=== PATIENT | male | born 1935 | race Caucasian/White ===

== ENCOUNTER → 2020-08-22 | Outpatient (CLI) | payer MEDICARE ==
[~2020-08-22] VITALS: Ht 170.2 cm; Wt 70.0 kg
[~2020-08-22] MED LIST: LIPITOR20 M2 PO; NORCO 325 MG-51 TA1 PO; PERCOCET 325 MG1 TA2 PO
[2020-08-22 15:00] VITALS: BP 139/71
== END ==
LOC: AMSURD 13:35
DX: K59.00 Constipation, unspecified (principal)

== ENCOUNTER → 2020-10-18 | Outpatient (CLI) | payer MEDICARE ==
[2020-08-22 15:00] VITALS: BP 139/71
[2020-10-18 15:00] LABS: ALBUMIN 3.7 g/dL (3.4-4.8); POTASSIUM 4.2 mmol/L (3.5-5.1)
[2020-10-18 15:01] LABS: CALCIUM 9.2 mg/dL (8.3-10.5)
[2020-10-18 15:03] LABS: TOTAL PROTEIN 6.4 g/dL (6.2-8.1)
[2020-10-18 15:05] LABS: TOTAL BILIRUBIN 0.4 mg/dL (0.2-1.2)
[2020-10-19 11:00] LABS: T3 TOTAL 48 ng/dL (58-159); TESTOSTERONE 891 ng/dL (221-716)
== END ==
LOC: LAB 14:29
PROVIDERS: Internal Medicine
DX: Z12.5 Encounter for screening for malignant neoplasm of prostate (principal); E78.2 Mixed hyperlipidemia; I10 Essential (primary) hypertension; K90.9 Intestinal malabsorption, unspecified; N52.9 Male erectile dysfunction, unspecified

== ENCOUNTER → 2021-04-27 | Outpatient (CLI) | payer MEDICARE ==
[2021-04-27 16:29] LABS: BASO # 0.07 (0.02-0.10); EOS # 0.51 (0.04-0.40); HEMATOCRIT 39.4 % (42.0-52.0); HEMOGLOBIN 13.1 g/dL (13.5-18.0); LYMPH# 1.56 (1.50-4.00); MEAN CELL VOLUME 99 fl (78-100); MEAN CORPUSCULAR HEMOGLOBIN 33 pg (27-31); MEAN CORPUSCULAR HGB CONC 33 g/dL (33-37); MEAN PLATELET VOLUME 9.8 fl (7.4-10.4); MONO # 0.81 (0.20-0.80); NEU # 4.34 (1.40-6.50); PLATELET COUNT 204 K/mm3 (130-400); RED BLOOD COUNT 3.97 M/mm3 (4.20-5.60); RED CELL DISTRIBUTION WIDTH 14.2 % (11.5-14.5); WHITE BLOOD COUNT 7.3 K/mm3 (4.8-10.8)
[2021-04-27 16:33] LABS: ALBUMIN 3.7 g/dL (3.4-4.8); POTASSIUM 4.4 mmol/L (3.5-5.1)
[2021-04-27 16:34] LABS: CALCIUM 9.5 mg/dL (8.3-10.5)
[2021-04-27 16:36] LABS: TOTAL PROTEIN 6.6 g/dL (6.2-8.1)
[2021-04-27 16:37] LABS: TOTAL BILIRUBIN 0.4 mg/dL (0.2-1.2)
[2021-04-27 16:42] LABS: MAGNESIUM 1.91 mg/dL (1.60-2.60)
[2021-04-29 05:28] LABS: T3 FREE 2.8 pg/mL (())
== END ==
LOC: LAB 15:48
PROVIDERS: Internal Medicine
DX: I10 Essential (primary) hypertension (principal); K90.9 Intestinal malabsorption, unspecified; E05.90 Thyrotoxicosis, unspecified without thyrotoxic crisis or storm

== ENCOUNTER → 2021-12-05 | Outpatient (CLI) | payer MEDICARE ==
[2021-12-05 16:37] LABS: POTASSIUM 4.2 mmol/L (3.5-5.1)
[2021-12-05 16:38] LABS: ALBUMIN 3.8 g/dL (3.4-4.8)
[2021-12-05 16:39] LABS: CALCIUM 9.4 mg/dL (8.3-10.5)
[2021-12-05 16:40] LABS: TOTAL PROTEIN 7.1 g/dL (6.2-8.1)
[2021-12-05 16:42] LABS: TOTAL BILIRUBIN 0.3 mg/dL (0.2-1.2)
[2021-12-05 16:54] LABS: URINE APPEARANCE CLEAR; URINE BILIRUBIN NEGATIVE (NEGATIVE); URINE BLOOD TRACE (NEGATIVE); URINE COLOR YELLOW; URINE GLUCOSE NEGATIVE (NEGATIVE); URINE KETONE NEGATIVE (NEGATIVE); URINE LEUKOCYTE ESTERASE NEGATIVE (NEGATIVE); URINE NITRATE NEGATIVE (NEGATIVE); URINE PROTEIN(semi-quant) TRACE (NEGATIVE); URINE UROBILINOGEN NORMAL (NORMAL); URINE WBC 0-1 /hpf (0-3)
[2021-12-05 16:55] LABS: URINE MUCUS PRESENT (NOT PRESENT)
[2021-12-06 01:20] LABS: T3 FREE 2.9 pg/mL (1.7-3.7)
== END ==
LOC: LAB 16:00
PROVIDERS: Internal Medicine
DX: Z12.5 Encounter for screening for malignant neoplasm of prostate (principal); E78.2 Mixed hyperlipidemia; E05.90 Thyrotoxicosis, unspecified without thyrotoxic crisis or storm; K90.9 Intestinal malabsorption, unspecified; R13.12 Dysphagia, oropharyngeal phase; J43.9 Emphysema, unspecified

== ENCOUNTER → 2022-03-30 | Outpatient (CLI) | payer MEDICARE | LOC: RAD 14:39 | DX: R91.8 Other nonspecific abnormal finding of lung field (principal) ==

== ENCOUNTER → 2022-04-03 | Outpatient (CLI) | payer MEDICARE ==
[2022-04-03 12:26] LABS: POTASSIUM 4.3 mmol/L (3.5-5.1)
[2022-04-03 12:27] LABS: CALCIUM 9.3 mg/dL (8.3-10.5)
== END ==
LOC: RAD 11:59
PROVIDERS: Internal Medicine
DX: J43.9 Emphysema, unspecified (principal); I10 Essential (primary) hypertension; R91.8 Other nonspecific abnormal finding of lung field

== ENCOUNTER → 2022-04-20 | Outpatient (CLI) | payer MEDICARE ==
[2022-04-20 15:16] LABS: ALBUMIN 3.3 g/dL (3.4-4.8)
[2022-04-20 15:21] LABS: TOTAL BILIRUBIN 0.3 mg/dL (0.2-1.2)
[2022-04-20 15:39] LABS: BASO # 0.07 K/mm3 (0.02-0.10); EOS # 0.38 K/mm3 (0.04-0.40); EOS % 4.4 % (0.0-4.0); HEMATOCRIT 36.1 % (42.0-52.0); HEMOGLOBIN 12.1 g/dL (13.5-18.0); LYMPH# 1.04 K/mm3 (1.50-4.00); MEAN CELL VOLUME 99 fl (78-100); MEAN CORPUSCULAR HEMOGLOBIN 33 pg (27-31); MEAN CORPUSCULAR HGB CONC 34 g/dL (33-37); MEAN PLATELET VOLUME 9.7 fl (7.4-10.4); MONO # 0.86 K/mm3 (0.20-0.80); NEU # 6.17 K/mm3 (1.40-6.50); PLATELET COUNT 239 K/mm3 (130-400); RED BLOOD COUNT 3.65 M/mm3 (4.20-5.60); RED CELL DISTRIBUTION WIDTH 14.2 % (11.5-14.5); WHITE BLOOD COUNT 8.5 K/mm3 (4.8-10.8)
[2022-04-20 16:32] LABS: ERYTHROCYTE SEDIMENTATION RATE 45 mm/hr (0-20)
[2022-04-22 09:43] LABS: T3 FREE 2.3 pg/mL (1.7-3.7)
== END ==
LOC: LAB 14:48
PROVIDERS: Internal Medicine
DX: E05.90 Thyrotoxicosis, unspecified without thyrotoxic crisis or storm (principal); K90.9 Intestinal malabsorption, unspecified; I10 Essential (primary) hypertension

== ENCOUNTER → 2022-04-27 | Outpatient (CLI) | payer MEDICARE | LOC: RAD 10:51 | DX: R59.0 Localized enlarged lymph nodes (principal) | CPT/HCPCS: Q9967 ==

== ENCOUNTER → 2022-05-03 | Outpatient (CLI) | payer MEDICARE | LOC: RAD 12:30 | DX: R59.0 Localized enlarged lymph nodes (principal) | CPT/HCPCS: A9575 ==

== ENCOUNTER → 2022-05-24 | Outpatient (CLI) | payer MEDICARE ==
[2022-05-24 17:39] LABS: HEMATOCRIT 34.3 % (42.0-52.0); HEMOGLOBIN 11.3 g/dL (13.5-18.0); MEAN CELL VOLUME 99 fl (78-100); MEAN CORPUSCULAR HEMOGLOBIN 33 pg (27-31); MEAN CORPUSCULAR HGB CONC 33 g/dL (33-37); MEAN PLATELET VOLUME 9.2 fl (7.4-10.4); PLATELET COUNT 213 K/mm3 (130-400); RED BLOOD COUNT 3.47 M/mm3 (4.20-5.60); RED CELL DISTRIBUTION WIDTH 14.6 % (11.5-14.5); WHITE BLOOD COUNT 10.6 K/mm3 (4.8-10.8)
[2022-05-24 17:48] LABS: POTASSIUM 4.6 mmol/L (3.5-5.1)
[2022-05-24 17:50] LABS: CALCIUM 9.3 mg/dL (8.3-10.5)
[2022-05-24 17:51] LABS: TOTAL PROTEIN 5.8 g/dL (6.2-8.1)
[2022-05-24 17:53] LABS: TOTAL BILIRUBIN 0.3 mg/dL (0.2-1.2)
[2022-05-24 18:28] LABS: HYPOCHROMIA 1+; LYMPHOCYTE 12 % (20-51); MONOCYTE 4 % (3-10); NEUTROPHILS 84 % (42-75)
== END ==
LOC: LAB 17:28
PROVIDERS: Internal Medicine
DX: C34.11 Malignant neoplasm of upper lobe, right bronchus or lung (principal)